=== PATIENT | female | born 1970 | race Two or more races ===

== ENCOUNTER 2017-01-11 14:58 | Inpatient (IN) | payer MEDICAID ==
[~2017-01-11] VITALS: Ht 154.9 cm; Wt 66.7 kg
[2017-01-11 15:52] LABS: Basophils # (auto) 0 uL; Basophils % (auto) 0.2 % (0.0-2.0); Eosinophils # (auto) 0 uL; Eosinophils % (auto) 0.1 % (0.0-7.0); Hematocrit 41.8 % (36.0-46.0); Lymphocytes # (auto) 2.3 uL; Lymphocytes % (auto) 10.6 % (10.0-50.0); Mean Corpuscular Hemoglobin 30.7 pg (28.0-32.0); Mean Corpuscular Hgb Conc. 33.5 g/dL (32.0-36.0); Mean Corpuscular Volume 91.5 fL (80.0-100.0); Mean Platelet Volume 8.7 fL (7.4-10.4); Monocytes # (auto) 1.2 uL; Monocytes % (auto) 5.4 % (0.0-12.0); Neutrophils # (auto) 18.4 uL; Neutrophils % (auto) 83.7 % (37.0-80.0); Platelet Count (auto) 321 10^3/uL (140-450)
[2017-01-11 16:10] LABS: Albumin 3.2 g/dL (3.4-5.0); BUN/Creatinine Ratio 19.8; Bilirubin, Total 0.7 mg/dL (0.2-1.0); Calcium 8.9 mg/dL (8.5-10.1); Magnesium 2.7 mg/dL (1.6-2.6); Potassium 3.8 mmol/L (3.5-5.1); Total Protein 8.7 g/dL (6.4-8.2)
[2017-01-11 16:27] LABS: Urine Bilirubin Negative (Negative); Urine Color Brown (Yellow); Urine Glucose Normal (Normal); Urine Mucus FEW (None Seen); Urine Nitrite Negative (Negative); Urine RBC 9 /hpf (0 - 4); Urine Squamous Epithelial Cell MOD /hpf (<5)
[2017-01-11 16:28] LABS: Urine Blood 2+ /uL (Negative); Urine Ketone 3+ (Negative)
[2017-01-11] MEDS: ONDANSETRON HCL 4 MG/2 ML VIAL IV ONE ×2 (17:15→17:45)
[2017-01-11] MEDS: MORPHINE SULFATE 4 MG/ML SYRG IV ONE ×2 (17:15→17:40)
[2017-01-11] MEDS ORDERED: SODIUM CHLORIDE 0.9% 1,000 ML IV ONE (17:15)
[2017-01-11] MEDS ORDERED: LEVOFLOXACIN 500MG 100 ML IV ONE (17:30)
[2017-01-11] MEDS: SODIUM CHLORIDE 0.9% 1,000 ML IV SCH (18:14)
[2017-01-11] MEDS ORDERED: LORazepam 0.5 MG TAB PO PRN (18:15)
[2017-01-11] MEDS ORDERED: PROCHLORPERAZINE EDISYLATE 5 MG/ML 2ML VIAL IV PRN (18:15)
[2017-01-11] MEDS ORDERED: cefTRIAXone 1GM/50ML D5W 50 ML IV ONE (18:15)
[2017-01-11] MEDS ORDERED: NITROGLYCERIN 0.4 MG SL TAB SL PRN (18:15)
[2017-01-11] MEDS ORDERED: ACETAMINOPHEN 500 MG TAB PO PRN (18:15)
[2017-01-11] MEDS ORDERED: MORPHINE SULF INJ 2 MG/ML SYRINGE 1ML IV PRN ×2 (18:15)
[2017-01-11 20:00] VITALS: BP 104/61
[2017-01-11 21:40] VITALS: BP 104/61
[2017-01-12] MEDS: metroNIDAZOLE 500MG/100ML 100 ML IV SCH ×4 (00:06→21:03)
[2017-01-12] MEDS: HYDROcodone-ACET 5/325MG TAB PO PRN ×2 (00:12→21:02)
[2017-01-12] MEDS: SODIUM CHLORIDE 0.9% 1,000 ML IV SCH ×3 (02:00→08:52)
[2017-01-12 04:40] VITALS: BP 98/52
[2017-01-12 06:00] LABS: Basophils # (auto) 0 uL; Basophils % (auto) 0.2 % (0.0-2.0); Eosinophils # (auto) 0 uL; Eosinophils % (auto) 0.1 % (0.0-7.0); Hematocrit 36.4 % (36.0-46.0); Hemoglobin 12.1 g/dL (12.2-16.2); Lymphocytes # (auto) 2.5 uL; Lymphocytes % (auto) 15.4 % (10.0-50.0); Mean Corpuscular Hemoglobin 30.3 pg (28.0-32.0); Mean Corpuscular Hgb Conc. 33.1 g/dL (32.0-36.0); Mean Corpuscular Volume 91.4 fL (80.0-100.0); Mean Platelet Volume 8.6 fL (7.4-10.4); Monocytes # (auto) 1.2 uL; Monocytes % (auto) 7.4 % (0.0-12.0); Neutrophils # (auto) 12.3 uL; Neutrophils % (auto) 76.9 % (37.0-80.0); Platelet Count (auto) 271 10^3/uL (140-450)
[2017-01-12 06:39] LABS: Albumin 2.5 g/dL (3.4-5.0); BUN/Creatinine Ratio 27.3; Bilirubin, Total 0.6 mg/dL (0.2-1.0); Potassium 3.3 mmol/L (3.5-5.1); Total Protein 6.7 g/dL (6.4-8.2)
[2017-01-12 08:17] VITALS: BP 97/52
[2017-01-12] MEDS: cefTRIAXone 1GM/50ML D5W 50 ML IV SCH (09:27)
[2017-01-12] MEDS ORDERED: SOD CHL 0.9%/ KCL 20MEQ 1,000 ML IV SCH (12:00)
[2017-01-12 12:25] VITALS: BP 95/55
[2017-01-12] MEDS ORDERED: POTASSIUM CHLORIDE 20 MEQ, LIDOCAINE 1% (LOCAL ANESTH.) 2 ML in SODIUM CHL 0.9% 100 ML IV ONE (12:30)
[2017-01-12 14:25] LABS: INR 1.02 (0.9-1.15); Partial Thromboplastin Time 32.5 sec (22.64-33.71)
[2017-01-12] MEDS ORDERED: [UNRECOGNIZED DRUG - CODE] PO (15:08)
[2017-01-12] MEDS ORDERED: METR500T14 PO (15:08)
[2017-01-12] MEDS ORDERED: DICY20TA66 PO (15:11)
[2017-01-12 17:01] VITALS: BP 102/58
[2017-01-12 18:37] LABS: INR 1.02 (0.9-1.15); Partial Thromboplastin Time 31.3 sec (22.64-33.71)
[2017-01-12 20:00] VITALS: BP 105/46
[2017-01-12] MEDS: D5W/SOD CHL 0.45%/KCL 20MEQ 1,000 ML IV SCH (20:43)
[2017-01-12 21:59] VITALS: BP 105/46
[2017-01-13] VITALS (7 sets, daily range): BP systolic 103–116; BP diastolic 49–71
[2017-01-13] MEDS: HYDROcodone-ACET 5/325MG TAB PO PRN (02:56)
[2017-01-13] MEDS: D5W/SOD CHL 0.45%/KCL 20MEQ 1,000 ML IV SCH ×2 (05:25→16:48)
[2017-01-13] MEDS: metroNIDAZOLE 500MG/100ML 100 ML IV SCH ×3 (05:27→21:40)
[2017-01-13 06:25] LABS: Basophils # (auto) 0 uL; Eosinophils # (auto) 0 uL; Eosinophils % (auto) 0.4 % (0.0-7.0); Hematocrit 32.2 % (36.0-46.0); Hemoglobin 10.8 g/dL (12.2-16.2); Lymphocytes # (auto) 1.3 uL; Lymphocytes % (auto) 11.6 % (10.0-50.0); Mean Corpuscular Hemoglobin 30.6 pg (28.0-32.0); Mean Corpuscular Hgb Conc. 33.4 g/dL (32.0-36.0); Mean Corpuscular Volume 91.5 fL (80.0-100.0); Mean Platelet Volume 8.2 fL (7.4-10.4); Monocytes # (auto) 0.7 uL; Monocytes % (auto) 6.9 % (0.0-12.0); Neutrophils # (auto) 8.8 uL; Neutrophils % (auto) 81.1 % (37.0-80.0); Platelet Count (auto) 276 10^3/uL (140-450); Red Cell Distribution Width 13.1 % (11.6-16.0); White Blood Cell 10.8 10^3/uL (4.4-10.8)
[2017-01-13 06:55] LABS: BUN/Creatinine Ratio 19.5; Calcium 7.7 mg/dL (8.5-10.1); Potassium 3.5 mmol/L (3.5-5.1)
[2017-01-13] MEDS: cefTRIAXone 1GM/50ML D5W 50 ML IV SCH (09:12)
[2017-01-14] VITALS (7 sets, daily range): BP systolic 105–127; BP diastolic 59–76
[2017-01-14] MEDS: TEMAZEPAM 15 MG CAP PO PRN (00:47)
[2017-01-14] MEDS: D5W/SOD CHL 0.45%/KCL 20MEQ 1,000 ML IV SCH ×3 (02:41→21:22)
[2017-01-14] MEDS: metroNIDAZOLE 500MG/100ML 100 ML IV SCH ×3 (06:00→21:21)
[2017-01-14] MEDS: cefTRIAXone 1GM/50ML D5W 50 ML IV SCH (09:00)
[2017-01-14] MEDS ORDERED: POVIDONE IODINE 10 % TOPICAL OINT 30GM TOP ONE (09:48)
[2017-01-14] MEDS ORDERED: MIDAZOLAM HCL 1MG/1ML-2 ML VIAL ONE (10:02)
[2017-01-14] MEDS ORDERED: fentaNYL CITRATE 100 MCG/2 ML VL ONE (10:02)
[2017-01-14] MEDS ORDERED: ROCURONIUM 10MG/ML 10ML VIAL IV ONE (10:02)
[2017-01-14] MEDS ORDERED: PROPOFOL 10 MG/ML 20 ML IV ONE (10:02)
[2017-01-14] MEDS ORDERED: hydrALAZINE HCL 20 MG/ML VL IV PRN (11:45)
[2017-01-14] MEDS ORDERED: ONDANSETRON HCL 4 MG/2 ML VIAL IV PRN (11:45)
[2017-01-14] MEDS ORDERED: ONDANSETRON HCL 4 MG/2 ML VIAL IV ONE (11:45)
[2017-01-14] MEDS ORDERED: HYDROmorphone HCL 2 MG/ML VL IV PRN (11:45)
[2017-01-14] MEDS ORDERED: ePHEDrine SULFATE 50 MG/ML AMP IV PRN (11:45)
[2017-01-14] MEDS: HYDROmorphone HCL 2 MG/ML VL IV PRN ×3 (11:49→12:11)
[2017-01-15] MEDS: TEMAZEPAM 15 MG CAP PO PRN (00:58)
[2017-01-15] MEDS: HYDROcodone-ACET 5/325MG TAB PO PRN (01:38)
[2017-01-15 05:00] VITALS: BP 101/50
[2017-01-15] MEDS: D5W/SOD CHL 0.45%/KCL 20MEQ 1,000 ML IV SCH (05:15)
[2017-01-15] MEDS: metroNIDAZOLE 500MG/100ML 100 ML IV SCH (05:53)
[2017-01-15 08:00] VITALS: BP 100/62
[2017-01-15] MEDS: cefTRIAXone 1GM/50ML D5W 50 ML IV SCH (08:37)
[2017-01-15] MEDS ORDERED: TRAM50TA2 PO (09:46)
[2017-01-15] MEDS ORDERED: CIPROFLOXACIN HCL 500 MG TAB PO SCH (10:00)
[2017-01-15 12:00] VITALS: BP 95/50
[2017-01-15 12:08] VITALS: BP 100/62
[2017-01-15] MEDS ORDERED: metroNIDAZOLE 500 MG TAB PO SCH (14:00)
== END 2017-01-15 14:10 | disposition home or self-care (01) | DRG 710 ==
LOC: ER 15:01 → TELE 15:02 → TELE-CENTR 19:22 → CENTRAL 01-15 09:41
PROVIDERS: ADMIT Internal Medicine; ATTEND Internal Medicine
PROC: 0FT44ZZ Resection of Gallbladder, Percutaneous Endoscopic Approach (ICD-10-PCS; principal; 2017-01-14 10:01)
DX: A41.9 Sepsis, unspecified organism (principal); K80.00 Calculus of gallbladder with acute cholecystitis without obstruction; I10 Essential (primary) hypertension; N39.0 Urinary tract infection, site not specified; K82.8 Other specified diseases of gallbladder; Z82.49 Family history of ischemic heart disease and other diseases of the circulatory system
CPT/HCPCS: 36415; 71010; 74176; 76705; 80048; 80053; 81001; 82150; 82247; 83605; 83690; 83735; 84702; 85025; 85610; 85730; 86850; 86900; 86901; 87040; 87086; 93005; 94761; 96365; 96367; J0696; J1956; J2001; J2250; J2405; J2704; J3490

== ENCOUNTER 2020-05-21 08:00 | Emergency (ER) | payer MEDICAID ==
[~2020-05-21] VITALS: Ht 154.9 cm; Wt 80.7 kg
[~2020-05-21 08:00] MED LIST: TRAM50TA2 PO
[2020-05-21 08:16] VITALS: BP 138/69
[2020-05-21] MEDS ORDERED: TETANUS-DIPTH-ACEL PERTUSSIS 0.5ML SYR Tdap IM ONE (08:45)
== END 2020-05-21 08:57 | disposition home or self-care (01) ==
LOC: ER 08:00
DX: S61.211A Laceration without foreign body of left index finger without damage to nail, initial encounter (principal); W26.0XXA Contact with knife, initial encounter; Y93.89 Activity, other specified; Y92.89 Other specified places as the place of occurrence of the external cause; Y99.8 Other external cause status
CPT/HCPCS: 12002; 90471; 90715

== ENCOUNTER 2022-06-04 00:07 | Emergency (ER) | payer MEDICAID, OTHER ==
[~2022-06-04] VITALS: Ht 157.5 cm; Wt 80.0 kg
[2022-06-04 02:08] LABS: Basophils # (auto) 0 10 ^3/uL (0-0.2); Basophils % (auto) 0.4 % (0.0-2.0); Eosinophils # (auto) 0 10 ^3/uL (0-0.8); Eosinophils % (auto) 0.3 % (0.0-7.0); Hematocrit 37.5 % (36.0-46.0); Hemoglobin 12.8 g/dL (12.2-16.2); Lymphocytes # (auto) 1.7 10 ^3/uL (0.4-5.4); Lymphocytes % (auto) 12.9 % (10.0-50.0); Mean Corpuscular Hemoglobin 30.2 pg (28.0-32.0); Mean Corpuscular Hgb Conc. 34.1 g/dL (32.0-36.0); Mean Corpuscular Volume 88.6 fL (80.0-100.0); Monocytes # (auto) 0.5 10 ^3/uL (0-1.3); Monocytes % (auto) 3.7 % (0.0-12.0); Neutrophils # (auto) 10.7 10 ^3/uL (1.6-8.6); Neutrophils % (auto) 82.7 % (37.0-80.0); Red Blood Cells 4.24 10^6/uL (4.0-5.20); Red Cell Distribution Width 12.9 % (11.8-14.3); White Blood Cell 12.9 10^3/uL (4.4-10.8)
[2022-06-04 02:26] LABS: Potassium 3.3 mmol/L (3.5-5.1)
[2022-06-04 02:30] LABS: Albumin 3.8 g/dL (3.4-5.0); BUN/Creatinine Ratio 18.8; Calcium 8.7 mg/dL (8.5-10.1)
[2022-06-04 02:33] LABS: Bilirubin, Total 0.3 mg/dL (0.2-1.0); Total Protein 7.7 g/dL (6.4-8.2)
[2022-06-04 03:53] LABS: Urine Bacteria FEW /hpf (None Seen); Urine Blood TRACE /uL (Negative); Urine Mucus FEW (None Seen); Urine Specific Gravity 1.017 (1.001-1.035); Urine WBC 10 /hpf (0 - 5)
[2022-06-04] MEDS ORDERED: PANT40TA2 PO (04:28)
[2022-06-04] MEDS ORDERED: ONDA-144 PO (04:28)
[2022-06-04] MEDS ORDERED: ONDANSETRON ODT 4 MG TAB PO ONE (04:45)
[2022-06-04 04:50] VITALS: BP 140/73
== END 2022-06-04 04:55 | disposition home or self-care (01) ==
LOC: ER 00:09
DX: R10.9 Unspecified abdominal pain (principal); R11.2 Nausea with vomiting, unspecified; Z90.49 Acquired absence of other specified parts of digestive tract
CPT/HCPCS: 36415; 80053; 81001; 85025; 99283; Q0162